=== PATIENT | female | born 1990 | race Asian ===

== ENCOUNTER 2018-08-23 12:12 | Emergency (ER) | payer OTHER ==
[2018-08-23 13:57] LABS: BASOPHILS % (AUTO) 0.4 %; EOSINOPHILS # (AUTO) 0.1 10^3/uL (0.0-0.7); HGB - HEMOGLOBIN 14.2 g/dL (12.0-16.0); LYMPHOCYTES # (AUTO) 1.3 10^3/uL (1.5-3.5); LYMPHOCYTES % (AUTO) 27.9 %; MEAN CORPUSCULAR HEMOGLOBIN 29.1 pg (27.0-31.0); MEAN CORPUSCULAR HGB CONC 34.2 g/dL (32.0-36.0); MEAN CORPUSCULAR VOLUME 85.1 fL (81.0-99.0); MONOCYTES # (AUTO) 0.5 10^3/uL (0.0-1.0); NEUTROPHILS # (AUTO) 2.8 10^3/uL (1.5-6.6); NEUTROPHILS % (AUTO) 58.7 %; PLT - PLATELET COUNT 256 10^3/uL (130-450); WHITE BLOOD COUNT 4.8 x10^3/uL (4.8-10.8)
[2018-08-23 14:10] LABS: BILIRUBIN,URINE NEGATIVE (NEGATIVE); GLUCOSE, URINE (UA) NEGATIVE (NEGATIVE); KETONES,URINE (UA) TRACE mg/dL (NEGATIVE); LEUKOCYTE ESTERASE, URINE NEGATIVE (NEGATIVE); NITRITE,URINE NEGATIVE (NEGATIVE); OCCULT BLOOD,URINE NEGATIVE (NEGATIVE); PH,URINE 6.5 PH (5.0-7.5); PROTEIN,URINE 30 mg/dL (NEGATIVE); UROBILINOGEN,URINE 0.2 (NORMAL) E.U./dL (NORMAL)
[2018-08-23 14:13] LABS: CLARITY,URINE HAZY (CLEAR); HCG UR QUAL NEGATIVE
[2018-08-23 14:18] LABS: ALBUMIN 3.7 g/dL (3.2-5.5); BILIRUBIN,TOTAL 0.4 mg/dL (0.2-1.0); CALCIUM 8.5 mg/dL (8.5-10.3); CREATININE 0.4 mg/dL (0.4-1.0); TOTAL PROTEIN 7.5 g/dL (6.7-8.2)
[2018-08-23 14:27] LABS: BACTERIA,URINE Rare /HPF (None Seen); MUCUS,URINE Few Strands; RBC,URINE None Seen /HPF (0-5); SQUAMOUS EPITHELIAL CELL,UR FEW Squamous (<= Few)
[2018-08-23] MEDS ORDERED: LIDOCAINE VISCOUS 2% 15 ML UDC MM STA (16:00)
--- NOTE | 2018-08-23 16:55 | XRAY Report ---
Reason: Cough Procedure Date: 08/23/2018 Accession Number: [id number] / [id number] Procedure: XR - Chest 2 View X-Ray CPT Code: 85636 FULL RESULT: EXAM: CHEST RADIOGRAPHY EXAM DATE: 08/23/2018 04:51 PM. CLINICAL HISTORY: Cough. COMPARISON: None. TECHNIQUE: 2 views. FINDINGS: Lungs/Pleura: No focal opacities evident. No pleural effusion. No pneumothorax. Normal volumes. Mediastinum: Heart and mediastinal contours are unremarkable. Other: None. IMPRESSION: No acute cardiopulmonary abnormality. RADIA
[2018-08-23 17:21] VITALS: BP 128/86
--- NOTE | 2018-08-23 17:42 | ED Physician Documentation ---
History of Present Illness - Stated complaint Stated Complaint: VOMITING/HIGH BS - Chief complaint Chief Complaint: General - History obtained from History obtained from: Patient - History of Present Illness Timing: How many days ago (3) Pain level max: 2 Pain level now: 1 Severity Comments: mild Quality: sharp Radiates to: non-radiating Improved by: nothing Worsened by: nothing Associated symptoms: right ear pain, sore throat Review of Systems Ten Systems: 10 systems reviewed and negative Constitutional: reports: Reviewed and negative Eyes: reports: Reviewed and negative Ears: reports: Reviewed and negative Nose: reports: Reviewed and negative Throat: reports: Reviewed and negative Cardiac: reports: Reviewed and negative Respiratory: reports: Reviewed and negative GI: reports: Reviewed and negative : reports: Reviewed and negative Skin: reports: Reviewed and negative Musculoskeletal: reports: Reviewed and negative Neurologic: reports: Reviewed and negative Psychiatric: reports: Reviewed and negative Endocrine: reports: Reviewed and negative Immunocompromised: reports: Reviewed and negative PD PAST MEDICAL HISTORY - Past Medical History Past Medical History: Yes Endocrine/Autoimmune: Type 1 diabetes - Past Surgical History Derm: Other (Reviewed and not relevant) - Present Medications Home Medications: Ambulatory Orders Medication Instructions Recorded Confirmed Ciprofloxacin/Hydrocortisone 2 drops RIGHTEAR TID #1 bottle 08/23/18 [Cipro Hc Otic Suspension] Ondansetron Odt [Zofran] 4 mg TL Q6H PRN #10 tablet 08/23/18 - Allergies Allergies/Adverse Reactions: Allergies Allergy/AdvReac Type Severity Reaction Status Date / Time ibuprofen Allergy Unknown Verified 08/23/18 16:10 - Living Situation Living Situation: reports: With family Living Arrangement: reports: At home - Social History Does the pt smoke?: No Smoking Status: Never smoker Does the pt drink ETOH?: No Does the pt have substance abuse?: No - Family History Family history: reports: Other (Reviewed and not relevant) - Immunizations Immunizations are current?: Yes PD ED PE NORMAL - Vitals Vital signs reviewed: Yes - General General: Alert and oriented X 3, No acute distress - HEENT HEENT: PERRL, Other (Right ear w erythemetous canal, no pharyngeal eschar) - Neck Neck: Supple, no meningeal sign - Cardiac Cardiac: RRR, No murmur - Respiratory Respiratory: Clear bilaterally - Abdomen Abdomen: Normal bowel sounds, Soft, Non tender, Non distended - Derm Derm: Warm and dry - Extremities Extremities: No deformity - Neuro Neuro: Alert and oriented X 3 - Psych Psych: Normal mood, Normal affect Results - Vitals Vitals: Vital Signs - 24 hr 08/23/18 08/23/18 08/23/18 12:29 14:51 16:03 Temperature 36.4 C L Heart Rate 81 88 78 Respiratory 16 24 18 Rate Blood Pressure 120/79 117/79 112/85 H O2 Saturation 97 99 95 08/23/18 17:20 Temperature Heart Rate 86 Respiratory 16 Rate Blood Pressure 128/86 H O2 Saturation 98 Oxygen O2 Source Room air - Labs Labs: Laboratory Tests 08/23/18 08/23/18 08/23/18 12:33 13:44 13:51 WBC 4.8 RBC 4.90 Hgb 14.2 Hct 41.7 MCV 85.1 MCH 29.1 MCHC 34.2 RDW 14.0 Plt Count 256 MPV 7.0 L Neut # (Auto) 2.8 Lymph # (Auto) 1.3 L Atkinson # (Auto) 0.5 Eos # (Auto) 0.1 Baso # (Auto) 0.0 Absolute Nucleated RBC 0.00 Nucleated RBC % 0.1 Sodium Potassium Chloride Carbon Dioxide Anion Gap BUN Creatinine Estimated GFR (MDRD) Glucose POC Whole Bld Glucose 204 H Calcium Total Bilirubin AST ALT Alkaline Phosphatase Total Protein Albumin Globulin Albumin/Globulin Ratio Lipase Urine Color YELLOW Urine Clarity HAZY Urine pH 6.5 Ur Specific [place] 1.025 Urine Protein 30 H Urine Glucose (UA) NEGATIVE Urine Ketones TRACE Urine Occult Blood NEGATIVE Urine Nitrite NEGATIVE Urine Bilirubin NEGATIVE Urine Urobilinogen 0.2 (NORMAL) Ur Leukocyte Esterase NEGATIVE Urine RBC None Seen Urine WBC 0-3 Ur Squamous Epith Cells FEW Squamous Urine Bacteria Rare Urine Mucus Few Strands Ur Microscopic Review INDICATED Urine Culture Comments NOT INDICATED Urine HCG, Qual NEGATIVE 08/23/18 13:51 WBC RBC Hgb Hct MCV MCH MCHC RDW Plt Count MPV Neut # (Auto) Lymph # (Auto) Atkinson # (Auto) Eos # (Auto) Baso # (Auto) Absolute Nucleated RBC Nucleated RBC % Sodium 135 Potassium 3.8 Chloride 103 Carbon Dioxide 22 Anion Gap 10.0 BUN 9 Creatinine 0.4 Estimated GFR (MDRD) 189 Glucose 210 H POC Whole Bld Glucose Calcium 8.5 Total Bilirubin 0.4 AST 55 H ALT 89 H Alkaline Phosphatase 76 Total Protein 7.5 Albumin 3.7 Globulin 3.8 Albumin/Globulin Ratio 1.0 Lipase 26 Urine Color Urine Clarity Urine pH Ur Specific [place] Urine Protein Urine Glucose (UA) Urine Ketones Urine Occult Blood Urine Nitrite Urine Bilirubin Urine Urobilinogen Ur Leukocyte Esterase Urine RBC Urine WBC Ur Squamous Epith Cells Urine Bacteria Urine Mucus Ur Microscopic Review Urine Culture Comments Urine HCG, Qual - Rads (name of study) Chest Xray Radiology: Prelim report reviewed, Final report received, EMP read indepedently, EMP read contemporaneously, Other (WNL) PD MEDICAL DECISION MAKING - ED course Complexity details: reviewed results, re-evaluated patient, d/w patient ED course: 28 YO Type 1 diabetic w vomiting, righ ear pain, sore throat. Vitals and labs unremarkable. Chest xray unremarkable. Patient discharged w Cipro Otic and will follow up w PCP regarding glucose control. No evidence of malignant otitis externa. Departure - Departure Disposition: 01 Home, Self Care Clinical Impression: Acute otitis externa, Nausea and vomiting, Elevated blood sugar Instructions: Hyperglycemia, ED Otitis Externa, ED Vomiting Diarrhea Nonspecific Ad Follow-Up: PERI CODY PA-C [Primary Care Provider] - Within 1 week Prescriptions: Ciprofloxacin/Hydrocortisone [Cipro Hc Otic Suspension] 2 drops RIGHTEAR TID #1 bottle Ondansetron Odt [Zofran] 4 mg TL Q6H PRN #10 tablet PRN Reason: Nausea / Vomiting Comments: Follow-up with PCP within 24 hours. Return with worsening symptoms. Discharge Date/Time: 08/23/18 18:05
== END 2018-08-23 18:05 | disposition home or self-care (01) ==
LOC: ED 12:12
DX: H60.501 Unspecified acute noninfective otitis externa, right ear (principal); E10.65 Type 1 diabetes mellitus with hyperglycemia; R11.2 Nausea with vomiting, unspecified; J02.9 Acute pharyngitis, unspecified
CPT/HCPCS: 36415; 71046; 80053; 81001; 81003; 81025; 83690; 85025; 87086; 99283